=== PATIENT | female | born 1935 | race Caucasian/White ===

== ENCOUNTER 2016-06-08 21:46 | Emergency (ER) | payer MEDICARE, OTHER ==
--- NOTE | ~2016-06-08 | ER ---
PATIENT'S NAME: HARPER AMBROSE [facility] AGE: 80 Y [address] ROOM: [place] [address] LOCATION: [facility] ADMIT DATE: 06/08/2016 ER/Outpatient Report DISCHARGE DATE: 06/09/2016 FAMILY PHYSICIAN: Physician, Unknown ATTENDING PHYSICIAN: Raeann Kunz Time of Arrival: 2146 hours. Time Seen: 2150 hours. IDENTIFICATION: A 80-year-old female. CHIEF COMPLAINT: Difficulty breathing. HISTORY OF PRESENT ILLNESS: The patient is a 80-year-old female who saw Dr. Horne today for fever and cough and was given an inhaler. She tonight came in with shortness of breath, dry cough, fever. She also complains of dyspnea with exertion. She denies chest pain. When I asked about heart disease, she says yes she has had a history of a "they told me I had heart problems." When I asked her specifically, she is not certain as to what and she denies ever having had a heart attack or stents. She did have a stress test that was negative in 2004. She had nonobstructive coronary artery disease and diastolic dysfunction. ALLERGIES: NO KNOWN DRUG ALLERGIES. CURRENT MEDICATIONS: 1. Quinapril 40 mg daily. 2. Metformin 500 mg daily. 3. Simvastatin 20 mg daily. 4. Chlorthalidone 25 mg daily. 5. Carvedilol 25 mg b.i.d. 6. Melatonin. 7. Tylenol as needed. MEDICAL PROBLEMS: Diabetes mellitus type 2, hypertension, diastolic dysfunction. SOCIAL HISTORY: The patient lives in [place]. She is . Tobacco use, denies. Alcohol use, denies. Drug use, denies. FAMILY HISTORY: PATIENT'S NAME: HARPER AMBROSE [facility] AGE: 80 Y [address] ROOM: [place], [place] [address] LOCATION: [facility] ADMIT DATE: 06/08/2016 ER/Outpatient Report DISCHARGE DATE: 06/09/2016 FAMILY PHYSICIAN: Physician, Unknown ATTENDING PHYSICIAN: Raeann Kunz No family history of premature coronary artery disease. REVIEW OF SYSTEMS: All systems reviewed are negative other than what is noted in the HPI. PHYSICAL EXAMINATION: VITAL SIGNS: Weight 91.3 kilograms, blood pressure 113/90, pulse 78, respirations 18, temp 100, sats 97% on 4 L per nasal cannula. The patient came in on O2 from the ambulance, I am not certain what her room air sats were, but her first sat recorded on the ambulance records were 95%, I do not know if that was before or after being placed on oxygen. HEENT: Head; normocephalic, atraumatic. Ears; TMs translucent, both ears. Eyes; pupils equal and reactive to light and accommodation. Extraocular movements intact. Nose, mucosa pink. No lesions. Mouth, no lesions. Pharynx, benign. NECK: Supple. No lymphadenopathy. No nuchal rigidity. LUNGS: Coarse breath sounds with some scattered coarse wheezes. HEART: Regular rate and rhythm. No murmur, rub, or gallop. ABDOMEN: Soft, nondistended, nontender. SKIN: [place], warm, and dry. No lesions or rashes noted. NEURO: No focal deficit. Lower extremity edema trace, right greater than left. No calf tenderness. EMERGENCY DEPARTMENT COURSE: A DuoNeb was given with improvement of her symptoms. Lungs were clear after that. UA negative. Lactate 1.7. D-dimer elevated at 1.24. White count 16.2 with 86% neutrophils. INR 1.07. Chemistry panel is unremarkable other than a blood sugar of 206. Magnesium 1.5. Cardiac enzymes negative. ProBNP elevated at 783, no proBNP available for comparison. Procalcitonin less than 0.05. CT scan, PE protocol, no pulmonary embolus. Venous Doppler of the right lower extremity negative for acute DVT. EKG; normal sinus rhythm at 74 beats per minute, no acute ST elevation or depression, right bundle-branch block which was noted on previous EKG on 04/19/2004. The patient did get up to urinate and got acutely short of breath. Chest x-ray, no acute process. Pending Radiology overread. The patient was given 40 mg of IV Lasix, DuoNeb treatment here, 1 g of IV Rocephin. IMPRESSION AND PLAN: 1. Bronchitis with reactive airway disease. Plan; Rocephin given here. She will be treated with Z-Ramez as directed. Continue albuterol as inhaler 2 puffs every 2 hours p.r.n. Follow up immediately if any respiratory distress; otherwise, follow up with Dr. Munoz later today. 2. Congestive heart failure. Lasix 40 mg IV given here in the emergency room. We will place her on 20 mg daily for 7 days. 3. Dyspnea on exertion. I discussed with Dr. Horne. The patient would PATIENT'S NAME: HARPER AMBROSE [facility] AGE: 80 Y [address] ROOM: [place] [address] LOCATION: [facility] ADMIT DATE: 06/08/2016 ER/Outpatient Report DISCHARGE DATE: 06/09/2016 FAMILY PHYSICIAN: Physician, Unknown ATTENDING PHYSICIAN: Raeann Kunz like to go home. She will be discharged home with followup later today with Dr. Munoz. 4. Diabetes mellitus type 2, mild hyperglycemia. She is advised to hold her metformin for 48 hours after the contrast from her CT PE protocol. The patient understands and agrees, and all questions have been answered. RAEANN KUNZ MD CAR/modl /[id number] d: 06/09/16712 t: 06/19/16619, OUTPATIENT REPORT
--- NOTE | ~2016-06-08 | ENPV ---
Vascular Lower Extremities DVT Study Procedure Demographics Patient Name HARPER AMBROSE Date of Study 06/09/2016 Patient Number [id number] Gender Female Date of 1935 Age 80 Visit Number [id number] Height Accession Number [id number] Weight Room Number BSA BMI Referring Ginger Ponce Interpreting Trevor Metcalf MD Physician Physician Physician Ordering Physician Ginger Cary MD Director Software Development Lead Customer Service Representative Anabella Dawson [facility] Conclusions Summary No evidence of deep vein thrombosis or superficial thrombophlebitis in the right lower extremity . Procedure Type of Study: Veins:Lower Extremities DVT Study, Lower Extremity Right. Indications for Study:Swelling of Limb. Appropriate Use Criteria:9 Patient Status:STAT. Study Location:ER. Technical Quality:Adequate visualization. Velocities are measured in cm/s ; Diameters are measured in cm Right Lower Extremities DVT Study Measurements Right 2D and Doppler Measurements + + + + +------+------+ + !Location !Visualized!Compressibility!Thrombosis!Signal!Reflux!Reflux ! ! ! ! ! ! ! !(sec) ! + + + + +------+------+ + !GSV Thigh !Yes !Yes !None !Phasic! ! ! + + + + +------+------+ + !Common !Yes !Yes !None !Phasic! ! ! !Femoral ! ! ! ! ! ! ! + + + + +------+------+ + !Prox !Yes !Yes !None !Phasic! ! ! !Femoral ! ! ! ! ! ! ! + + + + +------+------+ + !Mid Femoral!Yes !Yes !None !Phasic! ! ! + + + + +------+------+ + !Dist !Yes !Yes !None !Phasic! ! ! !Femoral ! ! ! ! ! ! ! + + + + +------+------+ + !Popliteal !Yes !Yes !None !Phasic! ! ! + + + + +------+------+ + !Gastroc !Yes !Yes !None ! ! ! ! + + + + +------+------+ + !PTV !Yes !Yes !None ! ! ! ! + + + + +------+------+ + !Peroneal !Yes !Yes !None ! ! ! ! + + + + +------+------+ + Signature dtt: TONNY NICKERSON dtd: 06/09/16 0049 Physician Self Edit
[2016-06-08 22:08] LABS: BASOPHIL % 0.2 %; EOSINOPHIL # 0.5 K/uL (0.0-0.5); EOSINOPHIL % 3.3 %; HEMATOCRIT 40.5 % (33.0-46.0); HEMOGLOBIN 13.2 g/dL (10.0-15.0); IMMATURE GRANULOCYTE # 0.1 K/uL (0.0-0.3); IMMATURE GRANULOCYTE % 0.6 %; MCH 29.9 pg (27.0-34.0); MCHC 32.6 gm/dL (32.0-36.5); MCV 91.6 fl (83.0-98.0); MONOCYTE # 0.6 K/uL (0.0-1.0); MONOCYTE % 3.4 %; MPV 11.4 fl (9.4-12.4); NEUTROPHIL % 86.5 %; NRBC % 0 /100WBC (0-0.00); PLATELET COUNT 177 K/uL (150-450); RBC 4.42 M/uL (3.50-5.50); RDW-CV 13.8 % (11.9-14.6)
[2016-06-08 22:10] LABS: WBC 16.2 K/uL (4.0-11.0)
[2016-06-08 22:22] LABS: INR - (THERAPEUTIC) 1.07 (0.92-1.07); PROTIME 11.2 SECONDS (9.8-11.4); PTT 29 SECONDS (25-32)
[2016-06-08 22:34] LABS: ALBUMIN 3.5 gm/dL (3.5-5.0); ALK PHOS 70 IU/L (33-138); ALT 16 IU/L (12-78); ANION GAP 10.8 (10.0-19.0); AST 11 IU/L (10-40); BLOOD UREA NITROGEN 23 mg/dL (6-24); CHLORIDE 102 mMol/L (96-110); CO2 26 mMol/L (22-32); CPK 82 IU/L (21-215); CREATININE 0.9 mg/dL (0.5-1.1); ESTIMATED GFR (MDRD EQUATION) > 60; MAGNESIUM 1.5 mg/dL (1.8-2.6); POTASSIUM 3.8 mMol/L (3.7-5.1); SODIUM 135 mMol/L (135-145); TOTAL BILIRUBIN 0.5 mg/dL (0.0-1.5); TOTAL PROTEIN 7.3 g/dL (6.0-8.4)
[2016-06-09 01:32] LABS: BILIRUBIN URINE NEGATIVE (NEGATIVE); BLOOD URINE NEGATIVE /UL (NEGATIVE); COLOR URINE COLORLESS (YELLOW); GLUCOSE URINE NEGATIVE (NEGATIVE); KETONE URINE NEGATIVE (NEGATIVE); LEUKOCYTES URINE NEGATIVE /UL (NEGATIVE); NITRITE URINE NEGATIVE (NEGATIVE); PROTEIN URINE NEGATIVE (NEGATIVE); SPEC GRAVITY URINE 1.005 (1.003-1.035); TURBIDITY URINE CLEAR (CLEAR); UROBILINOGEN URINE NORMAL (NORMAL)
== END 2016-06-09 01:56 | disposition disaster alternative care site (69) ==
LOC: GMED 21:46
PROVIDERS: Family Medicine
DX: I50.9 Heart failure, unspecified (principal); E11.9 Type 2 diabetes mellitus without complications; I10 Essential (primary) hypertension; J45.909 Unspecified asthma, uncomplicated; Z79.2 Long term (current) use of antibiotics; Z99.81 Dependence on supplemental oxygen; Z79.84 Long term (current) use of oral hypoglycemic drugs; Z79.899 Other long term (current) drug therapy
CPT/HCPCS: J0696; J1940; J7050; Q9967

== ENCOUNTER 2016-06-11 21:19 | Observation (INO) | payer MEDICARE, OTHER ==
[~2016-06-11] VITALS: Ht 149.9 cm; Wt 91.8 kg
--- NOTE | ~2016-06-11 | CON ---
PATIENT'S NAME: HARPER AMBROSE [facility] AGE: 80 Y [address] ROOM: [place] [address] LOCATION: [facility] ADMIT DATE: 06/12/2016 Consultation DISCHARGE DATE: FAMILY PHYSICIAN: Jhonatan Munoz MD ATTENDING PHYSICIAN: Jhonatan Munoz DATE OF CONSULTATION: 06/13/2016 REFERRING PHYSICIAN: BROOKE PRINCE MD REASON FOR REFERRAL: Shortness of breath. HISTORY OF PRESENT ILLNESS: The patient is a 80-year-old woman with a 1 month history of intermittent wheezing, shortness of breath, and cough. She has had similar episodes in the past about every 6 to 12 months. In the past, she has been given an inhaler for the symptoms and had improvement. When she would get better, she would then discontinue the use of the inhaler. Nonsmoker with no prior history of lung disease. PAST MEDICAL HISTORY: Please refer to the admission history and physical exam. FAMILY HISTORY: Positive for asthma and COPD. SOCIAL HISTORY: , lives in [place]. SYSTEM REVIEW: As per HPI. PHYSICAL EXAMINATION: GENERAL: Overweight elderly woman in no distress. She is not wearing supplemental oxygen. ENT: Unremarkable. NECK: Normal. CHEST: Obese. LUNGS: Diminished, but there are end-expiratory wheezes. HEART: Regular. ABDOMEN: Obese, nontender. EXTREMITIES: Trace of edema. ASSESSMENT: Probable underlying asthma with primary exacerbating factor being viral upper PATIENT'S NAME: HARPER AMBROSE [facility] AGE: 80 Y [address] ROOM: [place] [address] LOCATION: [facility] ADMIT DATE: 06/12/2016 Consultation DISCHARGE DATE: FAMILY PHYSICIAN: Jhonatan Munoz MD ATTENDING PHYSICIAN: Jhonatan Munoz respiratory infections. PLAN: Agree with current regimen of bronchodilators and corticosteroids. We will check bedside pulmonary function testing to get a rough idea of the degree of airflow limitation. We will follow with you. MD NURIA CUEVAS/modl /[id number] d: 06/14/16 0031 t: 06/20/16 0742, CONSULTATION REPORT
--- NOTE | ~2016-06-11 | ER ---
PATIENT'S NAME: HARPER AMBROSE [facility] AGE: 80 Y [address] ROOM: [address] [place], [place] [address] LOCATION: [facility] ADMIT DATE: 06/12/2016 ER/Outpatient Report DISCHARGE DATE: FAMILY PHYSICIAN: Jhonatan Munoz MD ATTENDING PHYSICIAN: Jhonatan Munoz HISTORY OF PRESENT ILLNESS: This is a 80-year-old female who presents today with shortness of breath. She presented here on June 08 as well for the same complaint and had a pretty thorough workup done. The patient reports that she is having the same shortness of breath since she had then, has not really improved. It is mostly exertional. It is only when she even walks on a flat surface, she can walk like 10 or 20 paces and then she gets very very short of breath. Also, has increased fatigue. She says she had a dry cough back then as well, but it was nonproductive. She did not have any other like runny nose, fever, chills or anything like that. She also reports whenever she does walk to the bathroom or has any sort of exertion whatsoever, she also gets this dull ache in her left scapula area. She denies any chest pain though. I reviewed what they did on June 08 for her. She had blood work done, which showed an elevated white count and elevated D-dimer as well. So, CT PE protocol was done, which was negative. She also had cardiac enzymes sent, which were also negative. So, she was given a shot of Rocephin here and discharged with Lasix before for some mildly elevated proBNP and also a Z-Ramez, and she also had albuterol inhalers that were given to her by Dr. Horne. The patient says she has been taking all of these and she does not feel any better. She actually had an appointment with Dr. Cole who is the line haul driver on June 22, but is not sure that she could wait till then basically because she is very very short of breath with any sort of exertion. She says she feels a lot better at rest though. No other complaints at this time. PAST MEDICAL HISTORY: Includes rwo-ppdsiqi-jlvxcmdap diabetes, hypertension, and diastolic dysfunction. PAST SURGICAL HISTORY: Includes bilateral total knee arthroplasty. SOCIAL HISTORY: She does not smoke, drink, or use any drugs. FAMILY HISTORY: No history of sudden cardiac or premature cardiac disease. ALLERGIES: NONE. PATIENT'S NAME: HARPER AMBROSE [facility] AGE: 80 Y [address] ROOM: [address] [place], [place] [address] LOCATION: [facility] ADMIT DATE: 06/12/2016 ER/Outpatient Report DISCHARGE DATE: FAMILY PHYSICIAN: Jhonatan Munoz MD ATTENDING PHYSICIAN: Jhonatan Munoz MEDICATIONS: Include, 1. Quinapril 40 mg daily. 2. Metformin 500 mg daily. 3. Simvastatin 20 mg daily. 4. Chlorthalidone 25 mg daily. 5. Carvedilol 25 mg b.i.d. 6. Melatonin. 7. Tylenol as needed. 8. Recently prescribed Lasix 20 mg daily for 7 days. 9. Also recently placed on Z-Ramez. REVIEW OF SYSTEMS: Negative except for those discussed in the HPI. PHYSICAL EXAMINATION: VITAL SIGNS: The patient is 4 feet 11 inches. She weighs 91.5 kilos. Blood pressure 102/52, heart rate 64, respiratory rate 24, temperature is 98.8, and saturations are 95% on room air. GENERAL: The patient is mildly tachypneic at this time, breathing about 22 breaths per minute when I am talking to her. When she did walk in from the waiting room into the room, she was breathing around 45 to 50 breaths per minute. She is able to speak to me in full sentences. She is not actively vomiting or retching. She is not pale or diaphoretic. She is A and O x4. Her GCS is 15. THROAT: Clear. HEART: She has regular rate and rhythm. Heart rate is 64. There are no murmurs. No ectopy on the monitor. CHEST: She has no chest wall tenderness. She has decreased lung sounds at the bases and sort of diffuse wheezing in the upper anterior lungs. No rales or rhonchi though. ABDOMEN: She is obese, soft, nontender, nondistended. EXTREMITIES: She has no pedal edema. Moves all extremities. SKIN: Warm and dry and intact. EMERGENCY ROOM COURSE: We did an EKG today, which shows sinus bradycardia, heart rate of 56 at this time, right bundle-branch block, poor R-wave progression. She also has T-wave inversions in lead III. There are no ST elevations that I can see. The T- wave inversions in III are new, but otherwise it looks pretty unchanged from the EKG done on 06/08/2016. We checked a CBC, CMP, and cardiac enzymes again. The CBC shows a white count of 10.6, H and H are 11.9/36.5, platelets are 178. No bandemia. Her CMP shows a sodium of 140, potassium 3.4, chloride 102, CO2 of 27, anion gap 14.4, glucose 122, BUN 81, creatinine is 2.0, bilirubin is PATIENT'S NAME: HARPER AMBROSE [facility] AGE: 80 Y [address] ROOM: [address] [address] LOCATION: [facility] ADMIT DATE: 06/12/2016 ER/Outpatient Report DISCHARGE DATE: FAMILY PHYSICIAN: Jhonatan Munoz MD ATTENDING PHYSICIAN: Jhonatan Munoz 0.3, alkaline phosphatase 71, AST 17, ALT 18, GFR is only 24, CPK is 79, CK-MB is 1.5, troponin is less than 0.04, and her proBNP today is 338, it was 783 on 06/08/2016, so it is now normal. The patient was given breathing treatments here and also prednisone as I initially thought this was sort of like a reactive airway disease because the wheezing would clear with the breathing treatment, but every time she got up to use the bathroom or would walk back, she became very short of breath. We put her back on the monitor, was that she was breathing around 50 breaths per minute just walking maybe 10 feet to the bathroom from her bed. Now with this sort of left scapular pain, I would be concerned for this being like an anginal equivalent. Even though she does not have any chest pain at this time, she was given aspirin. We will hold her Lasix at this time too. I did call Dr. Mcclellan who is covering for Dr. Munoz, and the patient will be admitted for cardiac obs to the floor, admitted in stable condition. IMPRESSION: Exertional dyspnea. MD VIRIDIANA FELDER/modl /[id number] d: 06/12/16 0429 t: 06/12/16 1820, OUTPATIENT REPORT
--- NOTE | ~2016-06-11 | PUL ---
PATIENT'S NAME: HARPER AMBROSE [facility] AGE: 80 Y [address] ROOM: [place] [address] LOCATION: [facility] ADMIT DATE: 06/12/2016 Pulmonary DISCHARGE DATE: FAMILY PHYSICIAN: Jhonatan Munoz MD ATTENDING PHYSICIAN: Jhonatan Munoz NAME OF PROCEDURE: Bedside Spirometry DATE OF PROCEDURE: June 13, 2016 TECH: RArapril, MOTORMAN/WOMAN REASON FOR EXAM: Dyspnea on exertion RESULTS: Spirometry does not demonstrate significant airflow obstruction, and there is no change post bronchodilator. There is a suggestion of at least moderate chest restriction. MD NURIA CUEVAS/ /[id number] dtt: 06/20/16 0745 Aleksandar David E. dtd: 06/14/16 1129
--- NOTE | ~2016-06-11 | ECHO ---
Transthoracic Echocardiography Report (TTE) Demographics Patient Name HARPER AMBROSE Date of Study 06/12/2016 Patient Number [id number] Visit Number [id number] Date of 1935 Room Number [address] Gender Female Number Age 80 year(s) Referring Tammy Ponce Winterizer Ajay Hull RVT, Physician RDCS Physician Interpreting Sakshi Temple Machine Veneer Repairer Physician Supervising Ordering Sakshi Temple MD/MLP Physician Nurse Stress Art Psychotherapist Conclusions Contractility Score Summary Normal Left Ventricular contractility was noted. Summary Normal LV/RV size and systolic function. The estimated left ventricular ejection fraction is 60-65%. Mild concentric left ventricular hypertrophy. Diastolic flow assessment reveals impaired relaxation consistent with Grade I diastolic dysfunction . Diastolic assessment reveals Grade I diastolic dysfunction. NO e/o pulmonary HTN on echo. Procedure Type of Study TTE procedure:2D Echocardiogram. Procedure Date Date: 06/12/2016 Start: 08:29 AM Study Location: Inpatient Portable Technical Quality: Good visualization Indications:Shortness of breath and Dyspnea with exertion. Appropriate Use Criteria: 8 Patient Status: Routine Rhythm: NSR HR: 67 bpm BP: 118/69 mmHg M-Mode/2D Measurements LV Diastolic Dimension: 3.48 cm LV Systolic Dimension: 2.27 cm LV Septum Diastolic: 1.39 cm LV PW Diastolic: 1.33 cm AO Root Dimension: 2.2 cm Cardiac Output: 4.55 l/min AV Cusp Separation: 1.2 cm RV Diastolic Dimension: 3.74 cm LA volume: 46 ml LVOT: 1.6 cm RV Base: 3.15 cm LVOT VTI: 33.8 cm RV Mid: 3.1 cm LV Stroke volume: 67.92 ml TAPSE: 1.9 cm TDI-S': 10.3 cm/s Doppler Measurements AV Peak Velocity: 1.83 m/s MV Peak E-Wave: 0.72 m/s AV Peak Gradient: 13.4 mmHg MV Peak A-Wave: 0.97 m/s AV Mean Gradient: 9 mmHg MV E/A Ratio: 0.74 LVOT Peak Velocity: 1.51 m/s MV P1/2t: 109 msec TR Gradient:22.28 mmHg PV Peak Velocity: 1.09 m/s Estimated RAP:5 mmHg PV Peak Gradient: 4.75 mmHg Estimated RVSP: 27 mmHg Estimated PASP: 27.28 mmHg E' Septal Velocity: 0.05 m/s A' Septal Velocity: 0.1 m/s E' Lateral Velocity: 0.06 m/s A' Lateral Velocity: 0.11 m/s Findings Left Ventricle Mild concentric left ventricular hypertrophy. Diastolic assessment reveals Grade I diastolic dysfunction. Right Ventricle Normal right ventricle structure and function. Left Atrium Normal left atrial size. There is no evidence of patent foramen ovale or atrial septal defect by color Doppler. Right Atrium Normal right atrial size. IVC measures 1.46 cm with inspiratory collapse. Mitral Valve Normal mitral valve structure and function. Aortic Valve The aortic valve is mildly sclerotic. Tricuspid Valve Normal appearing tricuspid valve. Trivial tricuspid regurgitation by color Doppler. Pulmonic Valve Normal pulmonic valve structure and function. Pericardial Effusion No evidence of pericardial effusion. Miscellaneous Visualized portions of the aortic root and ascending aorta appear normal in size. Pleural Effusion No evidence of pleural effusion. Contractility Score LV regional wall motion:(0-Non visualized 1-Normal 2-Hypokinesis 3-Akinesis 4-Dyskinesis 5-Aneurysm) Signature dtt: BROOKE PRINCE dtd: 06/12/16 0829 Physician Self Edit
--- NOTE | ~2016-06-11 | DS ---
PATIENT'S NAME: HARPER AMBROSE [facility] AGE: 80 Y [address] ROOM: [address] [place] [address] LOCATION: GPCU ADMIT DATE: 06/12/2016 Discharge Summary DISCHARGE DATE: 06/14/2016 FAMILY PHYSICIAN: Jhonatan Coto MD ATTENDING PHYSICIAN: Jhonatan Coto DISCHARGE DIAGNOSES: 1. Asthma exacerbation. 2. Acute renal failure, resolved. SECONDARY DIAGNOSES: 1. Acute hypoxic respiratory failure, improved. 2. Restrictive lung disease secondary to obesity. 3. Adult-onset diabetes mellitus, controlled. 4. Left ventricular hypertrophy. 5. Grade 1 diastolic dysfunction. 6. Hypertension. 7. Hyperlipidemia. 8. Morbid obesity. PRINCIPAL PROCEDURE: Echocardiogram. FOLLOWUP: Follow up is with Dr. Coto in 10 to 14 days, Dr. Huertas in 1 week, and [facility] Cardiology in 1 month. DISCHARGE MEDICATIONS: Include: 1. Accupril 40 mg daily. 2. Aspirin 81 mg daily. 3. Cefuroxime axetil 500 mg twice daily, finishing out her course that she already has at home. 4. Imdur 30 mg p.o. q.a.m. 5. Potassium 10 mEq 2 tablets twice daily. 6. Simvastatin 20 mg daily. 7. Proventil HFA 1 to 2 puffs every 4 hours p.r.n. 8. Metformin 500 mg p.o. twice daily of the XR. 9. Chlorthalidone 25 mg q.a.m. 10. Carvedilol 25 mg twice daily. 11. Tylenol 500 mg 2 every 4 hours p.r.n. pain. 12. Symbicort 160-4.5, 2 puffs twice daily. Rinse mouth after use. 13. Furosemide 40 mg daily. 14. Prednisone. Please see her tapering schedule. Her prednisone schedule is 10 mg 2 p.o. b.i.d. for 3 days, then 2 p.o. in the a.m. and 1 p.o. in the p.m. for 3 days and 1 p.o. b.i.d. for 3 days, then 1 p.o. q.a.m. for 3 days, then 1/2 p.o. q.a.m. for 3 doses and then stop. 15. Myrbetriq 50 mg daily. PATIENT'S NAME: HARPER AMBROSE [facility] AGE: 80 Y [address] ROOM: [address] [place], [place] [address] LOCATION: GPCU ADMIT DATE: 06/12/2016 Discharge Summary DISCHARGE DATE: 06/14/2016 FAMILY PHYSICIAN: Jhonatan Coto MD ATTENDING PHYSICIAN: Jhonatan Coto 16. Triamcinolone cream p.r.n. to topical areas. 17. We also, with her A1c being elevated, started her on Jardiance 25 mg 1 p.o. daily. LABORATORY SYNOPSIS: On admission, white count was 10.6, hemoglobin 11.9, hematocrit 36.5, and platelet count 178. This was stable throughout her stay. On the 9th, her white count was 12, hemoglobin 11.4, hematocrit 34.7, platelet count 187. Her differential was pretty much normal throughout. Her sodium on admission was 140, potassium slightly low at 3.4 and it was up to 3.7 on dismissal. The rest of her electrolytes were normal. Her blood sugars did increase into the 190 to 200 range with the steroid she was given during her hospital stay. She also had acute renal insufficiency improved. Her admitting creatinine was 2 and it got back down to 1.0. Her liver tests remained normal throughout. Her A1c was at 7.7, which was up significantly since her last clinic visit when it was in the 6s. Her cholesterol is 129, triglyceride 79, HDL 51, and LDL 63, so those overall looked good. HOSPITAL COURSE: The patient was admitted to observation by Dr. Mcclellan through the emergency room. She had cardiac enzymes, Accu-Chek's a.c. and at bedtime, sliding scale insulin, [facility], and had her medications renewed. During her workup, it was thought initially she may have COPD, but eventually it was decided that she had an asthma process and some restrictive lung disease due to her morbid obesity. The patient's situation seemed to gradually improve. She was started on Solu-Medrol. Carvedilol was decreased during her hospital stay. The rest of her medicines were overall continued. Cardiology was consulted and they recommended consulting Pulmonary. I was in agreement with this. Her Coreg was initially discontinued and they started her on Imdur and Norvasc. Her potassium was low, so we started her on some potassium. It did help improve her level. Albuterol via nebulization seemed to really help her also. They ordered bedside pulmonary function test. In mainly showed a restrictive process, but he did suspect that she had asthma. There were no signs of COPD. Her echocardiogram showed normal left ventricular contractility with normal LV and RV size and function with an LVEF of 60% to 65%, mild concentric LVH, diastolic flow pattern revealed impaired relaxation with grade 1 diastolic dysfunction. No signs of pulmonary hypertension on echo. Spirometry did not show significant airway obstruction and there was no change post bronchodilator. There was at least moderate chest restriction. The patient's situation overall improved. We discussed the importance of getting good control of her diabetes and also discussed the importance of weight loss that a lot of her breathing issues and that were related to her weight. She is going to work real hard on this. Followup is as mentioned above. CONDITION ON DISCHARGE: Good. PATIENT'S NAME: HARPER AMBROSE [facility] AGE: 80 Y [address] ROOM: [address] [place] [address] LOCATION: GPCU ADMIT DATE: 06/12/2016 Discharge Summary DISCHARGE DATE: 06/14/2016 FAMILY PHYSICIAN: Jhonatan Coto MD ATTENDING PHYSICIAN: Jhonatan Coto JHONATAN COTO MD PANCHAL/modl /[id number] CC: [facility] d: 06/18/16 2147 t: 07/13/16 1111, DISCHARGE SUMMARY
--- NOTE | ~2016-06-11 | CON ---
PATIENT'S NAME: HARPER PRICE [facility] AGE: 80 Y [address] ROOM: [place] [address] LOCATION: GPCU ADMIT DATE: 06/12/2016 Consultation DISCHARGE DATE: FAMILY PHYSICIAN: Jhonatan Munoz MD ATTENDING PHYSICIAN: Jhonatan Munoz DATE OF CONSULTATION: 06/12/2016 REFERRING PHYSICIAN: BROOKE PRINCE MD CARDIOLOGY CONSULTATION REPORT REFERRING PHYSICIAN: 1. Jasper Mcclellan MD. 2. Jhonatan Munoz MD. REASON FOR CONSULTATION: Dyspnea and abnormal EKG. HISTORY OF PRESENT ILLNESS: Ms. Price is a pleasant 80-year-old female, who was seen in the emergency room with complaints of shortness of breath. She has been symptomatic presently for 3 to 4 days with complaints of shortness of breath on minimal exertion and cough. She was apparently seen in the emergency room on June 08 as well, and she had extensive workup at that time including workup for pulmonary embolism which was found negative. She was treated with Lasix and Rocephin, and she also received Z-Ramez. In view of persistent shortness of breath, she came back to the emergency room yesterday and was admitted for further management. She denied any chest pain. The patient is physically not very active and stated that she walks, however, she has leg discomfort which limits her activities. She has had bilateral knee replacement. She denied any palpitations. No history of syncope. No history of previous known cardiac disease. PAST MEDICAL HISTORY: 1. Hypertension. 2. Diabetes mellitus. 3. Hyperlipidemia. PAST SURGICAL HISTORY: The patient is status post bilateral total knee arthroplasty. SOCIAL HISTORY: She is a nonsmoker and nonalcoholic. She is and lives with her . PATIENT'S NAME: HARPER PRICE [facility] AGE: 80 Y [address] ROOM: [place] [address] LOCATION: GPCU ADMIT DATE: 06/12/2016 Consultation DISCHARGE DATE: FAMILY PHYSICIAN: Jhonatan Munoz MD ATTENDING PHYSICIAN: Jhonatan Munoz FAMILY HISTORY: No family history of premature coronary artery disease or sudden cardiac . REVIEW OF SYSTEMS: The patient stated she has chronic mild diminution of vision. Also complained of mild dysphagia and history of heartburn, and she was previously diagnosed to have gastroesophageal reflux disease. She denied any nausea or vomiting. No history of diarrhea or constipation. No history of fever. History of dry cough and sometimes with small amount of expectoration is present. She also complained of chronic mild leg discomfort, especially with walking. Review of other systems was essentially negative. CURRENT MEDICATIONS: As an outpatient included: 1. Quinapril 40 mg daily. 2. Metformin 500 mg daily. 3. Simvastatin 20 mg daily. 4. Chlorthalidone 25 mg daily. 5. Carvedilol 25 mg b.i.d. 6. Melatonin. 7. Tylenol. 8. Lasix 20 mg. 9. Z-Ramez. PHYSICAL EXAMINATION: GENERAL APPEARANCE: On examination, she is awake, alert, and oriented and in no distress. VITAL SIGNS: Her temperature is 98.0, respiratory rate 16, pulse rate 66, blood pressure 118/69, and weight 86 kg. HEENT: Head is atraumatic and normocephalic. Tongue is moist. NECK: No significant jugular venous distention is present. CARDIOVASCULAR: S1 and S2 are audible. They are regular in rate and rhythm with no audible murmur. RESPIRATORY: Bilateral vesicular breath sounds are audible with bilateral expiratory rhonchi, especially heard posteriorly on both sides. ABDOMEN: Mildly distended. Soft, nontender. Bowel sounds are present. EXTREMITIES: Show no significant pedal edema. NEUROLOGIC: The patient is awake, alert, and oriented. There are no focal neurological deficits noted. SKIN: Warm and dry. LABORATORY DATA: Labs: Sodium 140, potassium 3.4, chloride 102, CO2 of 27, glucose 122, BUN 81, and creatinine 2. Her BUN has increased from 23 on June 08 to 81 PATIENT'S NAME: HARPER PRICE [facility] AGE: 80 Y [address] ROOM: [place] [address] LOCATION: GPCU ADMIT DATE: 06/12/2016 Consultation DISCHARGE DATE: FAMILY PHYSICIAN: Jhonatan Munoz MD ATTENDING PHYSICIAN: Jhonatan Munoz yesterday. Magnesium 1.5. White blood cell count 10.6, hemoglobin 11.9, and platelet count 178,000. Cardiac enzymes; CPK 72, CK-MB 1.7, and troponin is less than 0.04. ProBNP 338. EKG done on 06/11/2016 showed sinus bradycardia at 56 beats per minute, right bundle branch block, T-wave inversion in lead 3, and anterior ST-elevation in anterior and lateral leads likely due to early repolarization. ASSESSMENT AND PLAN: 1. Dyspnea appears likely to be due to chronic obstructive pulmonary disease exacerbation. We will start patient on nebulized bronchodilators. Management per primary care provider. Since patient also has coronary artery disease risk factors, we will consider stress test after her bronchospasm improves. The patient unable to exercise much due to her chronic leg discomfort and she is status post bilateral knee replacement. 2. Abnormal EKG. We will consider stress test for evaluation of ischemia after bronchospasm improves. 3. Hypertension, well controlled. 4. Diabetes mellitus. In view of worsening of renal function, we will hold metformin and we will consider alternative medications. 5. Acute renal failure, likely related to diuretics. We will discontinue diuretics and hydrate the patient. 6. Obesity. The patient was counseled on diet and weight loss. We will follow up on echocardiogram. Thank you for allowing us in taking part in the care of this pleasant patient. The plan of care was discussed with the patient and her . MD BRIDGET CAMPOS/modl /[id number] d: 06/12/161330 t: 06/29/161930, CONSULTATION REPORT
[2016-06-11 23:07] LABS: BASOPHIL % 0.3 %; EOSINOPHIL % 9.5 %; HEMATOCRIT 36.5 % (33.0-46.0); HEMOGLOBIN 11.9 g/dL (10.0-15.0); IMMATURE GRANULOCYTE # 0.1 K/uL (0.0-0.3); IMMATURE GRANULOCYTE % 0.6 %; LYMPHOCYTE # 2.2 K/uL (0.8-4.0); LYMPHOCYTE % 21.2 %; MCHC 32.6 gm/dL (32.0-36.5); MCV 91.9 fl (83.0-98.0); MONOCYTE # 0.7 K/uL (0.0-1.0); MONOCYTE % 6.6 %; MPV 11.5 fl (9.4-12.4); NEUTROPHIL # (ANC) 6.5 K/uL (1.8-7.8); NEUTROPHIL % 61.8 %; NRBC % 0 /100WBC (0-0.00); PLATELET COUNT 178 K/uL (150-450); RBC 3.97 M/uL (3.50-5.50); WBC 10.6 K/uL (4.0-11.0)
[2016-06-11 23:25] LABS: ALBUMIN 3.2 gm/dL (3.5-5.0); ALK PHOS 71 IU/L (33-138); ALT 18 IU/L (12-78); ANION GAP 14.4 (10.0-19.0); AST 17 IU/L (10-40); BLOOD UREA NITROGEN 81 mg/dL (6-24); CALCIUM 8.4 mg/dL (8.5-10.5); CHLORIDE 102 mMol/L (96-110); CO2 27 mMol/L (22-32); CPK 79 IU/L (21-215); ESTIMATED GFR (MDRD EQUATION) 24; POTASSIUM 3.4 mMol/L (3.7-5.1); SODIUM 140 mMol/L (135-145); TOTAL BILIRUBIN 0.3 mg/dL (0.0-1.5); TOTAL PROTEIN 6.9 g/dL (6.0-8.4)
[2016-06-12] MEDS ORDERED: ACCUPRIL40 MG PO (01:41)
[2016-06-12] MEDS ORDERED: ZOCOR20 MG PO (01:42)
[2016-06-12] MEDS ORDERED: GLUCOPHAGE XR500 M1 PO (01:42)
[2016-06-12] MEDS ORDERED: COREG25 MG PO (01:43)
[2016-06-12] MEDS ORDERED: HYGROTON25 MG PO (01:43)
[2016-06-12] MEDS ORDERED: TYLENOL EXTRA500 MG PO (01:44)
[2016-06-12] MEDS ORDERED: SYMBICORT 16010.2 GM INH (01:46)
--- NOTE | 2016-06-12 02:02 | NUR ---
PATIENT SEEN IN ER ON 06/08 DIAGNOSED WITH BRONCHITIS. HAS NOT SEEN ANY IMPROVEMENT AND HAS DEVELOVED SOB AND L) SHOULDER PAIN ON EXCERSION. ALSO EKG CHANGES. PATIENT IS CURRENTLY ON ROOM AIR. TRENDING CARDIAC ENZYMES. EDUCATED PATIENT ON USE OF CALL LIGHT.
[2016-06-12 06:45] LABS: CPK 72 IU/L (21-215)
[2016-06-12] MEDS ORDERED: CEFTIN500 MG PO (09:24)
[2016-06-12] MEDS ORDERED: LASIX40 MG PO (09:24)
[2016-06-12] MEDS ORDERED: DELTASONE10 MG PO (09:25)
[2016-06-12] MEDS ORDERED: PROVENTIL OR V6.7 GM INH (09:25)
[2016-06-12] MEDS ORDERED: MYRBETRIQ50 MG PO (09:26)
[2016-06-12] MEDS ORDERED: TRIACET 0.1% 8080 GM TOP (09:27)
--- NOTE | 2016-06-12 15:19 | NUR ---
Significant Event: VSS. UP WITH SBA. WHEEZING AND SHORTNESS OF BREATH WORSENS WITH ACTIVITY. ORTHOSTATIC BP NEGATIVE. STARTED IV SOLUMEDROL. CONSULTED PULMONARY, DR. FOSTER TO SEE. CARDIAC ENZYMES HAVE REMAINED NEGATIVE. NS @ 100 ML/HR FOR 1 LITER. IV TO RIGHT FA. FAMILY AT BEDSIDE. Follow up:
[2016-06-12 15:41] LABS: CALCIUM 8.7 mg/dL (8.5-10.5); CREATININE 1.5 mg/dL (0.5-1.1)
[2016-06-12 15:42] LABS: ANION GAP 15.6 (10.0-19.0); POTASSIUM 3.6 mMol/L (3.7-5.1)
[2016-06-12 15:43] LABS: CPK 93 IU/L (21-215)
[2016-06-12 18:25] LABS: CPK 111 IU/L (21-215)
[2016-06-13 03:38] LABS: BASOPHIL % 0.1 %; HEMOGLOBIN 11.2 g/dL (10.0-15.0); IMMATURE GRANULOCYTE % 0.4 %; LYMPHOCYTE # 0.9 K/uL (0.8-4.0); MCH 29.6 pg (27.0-34.0); MCHC 32.9 gm/dL (32.0-36.5); MCV 89.7 fl (83.0-98.0); MONOCYTE # 0.1 K/uL (0.0-1.0); MONOCYTE % 0.9 %; MPV 11.6 fl (9.4-12.4); NEUTROPHIL % 85.6 %; NRBC % 0 /100WBC (0-0.00); PLATELET COUNT 183 K/uL (150-450); RBC 3.79 M/uL (3.50-5.50); RDW-CV 13.6 % (11.9-14.6)
[2016-06-13 03:54] LABS: ANION GAP 12.5 (10.0-19.0); CALCIUM 8.1 mg/dL (8.5-10.5); POTASSIUM 3.5 mMol/L (3.7-5.1)
[2016-06-13 04:05] LABS: CPK 73 IU/L (21-215)
--- NOTE | 2016-06-13 04:36 | NUR ---
A/O. HR 60s. SBP 110-160s. AFEBRILE. ROOM AIR. INSPIRATORY AND EXPIRATORY WHEEZE THROUGHOUT. FLUID BOLUS FINISHED. UP TO BATHROOMM SBA. NO BM. DENIES PAIN. PULMONOLOGY TO SEE TODAY. ACHS ACCUCHECKS.
--- NOTE | 2016-06-13 12:02 | NUR ---
Introduced self and role of care management to patient and family. She lives in [place] with her . She states that she is able to do all her own ADL's. Her family is available to assist as needed. She plans on returning home on discharge. She denies any needs at this time. Will continue to follow.
--- NOTE | 2016-06-13 15:04 | NUR ---
Significant Event: Patient A/O x 3. Up with SBA. VSS on RA. Continues to have wheezing present in all lung robertson. Short of breath with activity. Dr. Huertas saw patient and ordered PFT's. To do at approximately 1900 tonight. R)FA PIV saline locked. Gave last dose of IV solumedrol ordered (4/4 doses). Family at beside throughout the day. Blood sugars in 200-300's. ACHS accu checks. Follow up: Continue as per plan of care. PFT's tonight. Monitor repsiratory status.
[2016-06-14 04:43] LABS: BASOPHIL % 0.1 %; HEMATOCRIT 34.7 % (33.0-46.0); HEMOGLOBIN 11.4 g/dL (10.0-15.0); IMMATURE GRANULOCYTE # 0.1 K/uL (0.0-0.3); IMMATURE GRANULOCYTE % 0.6 %; LYMPHOCYTE # 1.1 K/uL (0.8-4.0); LYMPHOCYTE % 9.4 %; MCH 29.6 pg (27.0-34.0); MCHC 32.9 gm/dL (32.0-36.5); MCV 90.1 fl (83.0-98.0); MONOCYTE # 0.7 K/uL (0.0-1.0); MONOCYTE % 5.6 %; MPV 11.1 fl (9.4-12.4); NEUTROPHIL # (ANC) 10.1 K/uL (1.8-7.8); NEUTROPHIL % 84.3 %; NRBC % 0 /100WBC (0-0.00); PLATELET COUNT 187 K/uL (150-450); RBC 3.85 M/uL (3.50-5.50); RDW-CV 13.7 % (11.9-14.6)
--- NOTE | 2016-06-14 04:49 | NUR ---
Significant Event: Patient A/Ox3. VSS on RA. Lungs slightly coarse with expiratory wheezes. Sats >95% on room air. HS blood glucose of 351. Patient has had no complaints of pain, but states she hasn't slept very well this shift. Follow up: Home today?
[2016-06-14 04:58] LABS: ANION GAP 11.7 (10.0-19.0); CALCIUM 8.3 mg/dL (8.5-10.5); POTASSIUM 3.7 mMol/L (3.7-5.1)
[2016-06-14] MEDS ORDERED: ASPIRIN (CHILDR81 MG PO (14:12)
[2016-06-14] MEDS ORDERED: IMDUR30 MG PO (14:13)
[2016-06-14] MEDS ORDERED: K-TAB ER20 MEQ PO (14:14)
[2016-06-14] MEDS ORDERED: JARDIANCE25 MG PO (14:31)
--- NOTE | 2016-06-14 16:59 | NUR ---
Discharge Summary: Patient A/O x 3. Up independently in room. Vital signs stable: HR 57, BP 168/73, O2 saturation 96% RA, temperature 97.7, RR 20, and denies pain. Patient has wheezing in lungs, but MD's aware. Discharge instructions included new medications/medication changes, follow-up appointments with Dr. Frost, Dr. Munoz, and Dr. Huertas, signs/symptoms to be alert for, diabetes/diet education, and info about asthma. Patient and verbalize understanding of all teaching. Patient left PCU at 1625 to [facility] and then home to self care with . IV and monitor discontinued. No needs at time of discharge. Julio César RN 06/14/16
== END 2016-06-14 16:25 | disposition disaster alternative care site (69) ==
LOC: GMED 21:19 → GPCU 06-12 01:08
PROVIDERS: Emergency Medicine; Family Medicine; Internal Medicine Interventional Cardiology; ADMIT Obstetrics & Gynecology Obstetrics
DX: J45.901 Unspecified asthma with (acute) exacerbation (principal); J96.01 Acute respiratory failure with hypoxia; I11.0 Hypertensive heart disease with heart failure; I50.32 Chronic diastolic (congestive) heart failure; G51.0 Bell's palsy; E11.9 Type 2 diabetes mellitus without complications; E78.2 Mixed hyperlipidemia; M19.90 Unspecified osteoarthritis, unspecified site; Z68.38 Body mass index [BMI] 38.0-38.9, adult; E66.01 Morbid (severe) obesity due to excess calories; Z98.41 Cataract extraction status, right eye; Z98.890 Other specified postprocedural states; Z96.653 Presence of artificial knee joint, bilateral; Z79.84 Long term (current) use of oral hypoglycemic drugs; Z79.899 Other long term (current) drug therapy
CPT/HCPCS: G0237; G0378; J2920; J7030; J7512

== ENCOUNTER 2016-06-26 16:55 | Observation (INO) | payer MEDICARE, OTHER ==
[~2016-06-26] VITALS: Ht 149.9 cm; Wt 87.5 kg
[~2016-06-26 16:55] MED LIST: ACCUPRIL40 MG PO; ASPIRIN (CHILDR81 MG PO; CEFTIN500 MG PO; COREG25 MG PO; DELTASONE10 MG PO; GLUCOPHAGE XR500 M1 PO; HYGROTON25 MG PO; IMDUR30 MG PO; JARDIANCE25 MG PO; K-TAB ER20 MEQ PO; LASIX40 MG PO; MYRBETRIQ50 MG PO; PROVENTIL OR V6.7 GM INH; SYMBICORT 16010.2 GM INH; TRIACET 0.1% 8080 GM TOP; TYLENOL EXTRA500 MG PO; ZOCOR20 MG PO
--- NOTE | 2016-06-26 17:41 | NUR ---
Pt admitted from clinic. has been lightheaded last 2 days and was seeing black spots today so she went to the clinic. admitted at 1715. Up with standby assist. VS stable. Hx of htn, high cholesterol, bels palsy, heart cath, bilaterial knee replacements, asthma, inc of urine at times, diabetes. c/o intermittent left sharp pain under breasts, MD aware. Also has hx of difficulty swallowing. Has some bruises on bilaterial arms from IV sticks as she was in the hospital a few weeks ago for asthma. Awaiting orders.
[2016-06-26 19:44] LABS: CPK 33 IU/L (21-215)
[2016-06-26 21:42] LABS: CPK 33 IU/L (21-215)
[2016-06-26 23:53] LABS: CPK 29 IU/L (21-215)
--- NOTE | 2016-06-27 04:46 | NUR ---
Significant Event: Patient has not reported any dizziness and vitals have been stable with no hypotensive episodes. Up to bathroom with stand-by assist. Alert and oriented pleasant with cares. Accucheck AC/HS. Follow up: Home meds need to be addressed.
[2016-06-27 06:18] LABS: BASOPHIL % 0.2 %; EOSINOPHIL # 0.6 K/uL (0.0-0.5); EOSINOPHIL % 5.6 %; HEMATOCRIT 35.8 % (33.0-46.0); HEMOGLOBIN 11.5 g/dL (10.0-15.0); IMMATURE GRANULOCYTE # 0.1 K/uL (0.0-0.3); IMMATURE GRANULOCYTE % 0.8 %; LYMPHOCYTE % 17.5 %; MCH 29.5 pg (27.0-34.0); MCHC 32.1 gm/dL (32.0-36.5); MCV 91.8 fl (83.0-98.0); MONOCYTE # 0.5 K/uL (0.0-1.0); MONOCYTE % 4.5 %; MPV 11.1 fl (9.4-12.4); NEUTROPHIL % 71.4 %; NRBC % 0 /100WBC (0-0.00); PLATELET COUNT 150 K/uL (150-450); RDW-CV 14.2 % (11.9-14.6); WBC 11.1 K/uL (4.0-11.0)
[2016-06-27 06:38] LABS: ALBUMIN 2.6 gm/dL (3.5-5.0); ANION GAP 11.4 (10.0-19.0); CALCIUM 7.7 mg/dL (8.5-10.5); POTASSIUM 3.4 mMol/L (3.7-5.1); TOTAL PROTEIN 5.2 g/dL (6.0-8.4)
[2016-06-27 06:41] LABS: TOTAL BILIRUBIN 0.5 mg/dL (0.0-1.5)
--- NOTE | 2016-06-27 10:45 | NUR ---
Introduced self/role to patient. She lives in [place] with her . She states she gets around independently and denied any need for DME. She could not think of any barriers at home or barriers to discharging today. Added my name to her marker board.
--- NOTE | 2016-06-27 14:23 | NUR ---
D:Orders received for patient to be dismissed. I:Dismissal instructions were prepared and reviewed with the patient. The following information was reviewed with the patient:diet and activity recommendations for home, s/s to monitor for and to report to MD if they occur, home medications and changes to home medications, (highlighted all med changes on pt's copy of dismissal instructions), and plans for pt to follow up with Dr. Conklin tomorrow at 2:00 PM. Leighton information given to patient on the following topic: Preventing DVT. R:The patient verbalized understanding of above teaching and denied further questions at this point in time. P:The patient was given her dismissal paperwork. The primary nurse, Galilea SON, was informed that the teaching had been completed. The patient will be dismissed when her arrives to get her. Yue SON
== END 2016-06-27 14:50 | disposition disaster alternative care site (69) ==
LOC: GMSU 16:55
PROVIDERS: ADMIT Family Medicine
DX: N17.9 Acute kidney failure, unspecified (principal); I95.1 Orthostatic hypotension; E86.0 Dehydration; I10 Essential (primary) hypertension; E78.5 Hyperlipidemia, unspecified; J45.909 Unspecified asthma, uncomplicated; E11.9 Type 2 diabetes mellitus without complications; Z79.82 Long term (current) use of aspirin; Z79.899 Other long term (current) drug therapy
CPT/HCPCS: G0378; G0379; J7030; J7040

== ENCOUNTER → 2016-07-08 | Outpatient (CLI) | payer MEDICARE, OTHER ==
--- NOTE | ~2016-07-08 | ESTC ---
Cardiac Perfusion Imaging Demographics Patient Name ARNOL Lagos Gender Female Patient Number [id number] Race Visit Number [id number] Ethnicity Corporate ID Room Number Accession Number [id number] Height Date of 1935 Weight Age 81 year(s) BSA Referring Physician Sakshi Temple BMI Interpreting Sakshi Temple Date of study 07/08/2016 Physician Supervising MD/MLP Sakshi Temple NM Technologist Raimundo Bain MD Ordering Physician Sakshi Temple Stress MD dialysis patient care technician Stress ECG Reading Sakshi Temple Nurse Patrick English Physician nailing machine feeder Procedure Type: Nuclear Stress Test:Pharmacological, Lexiscan, Cardiolite Stress Test Procedure Start time: 07/08/2016 09:06 Indications: Chest discomfort and Dyspnea. Risk Factors The patient risk factors include:obesity, treated hypercholesterolemia, treated hypertension and dyslipidemia. Conclusions Summary Perfusion Images: The overall quality of the study is poor, due to gastrointestinal tracer uptake. Left ventricular cavity is noted to be normal on the stress and normal on the rest images. There is no evidence of abnormal lung activity. The right ventricle is not visualized an cannot be assessed. Impression ECG portion of the lexiscan stress test is clinically negative for ischemia by diagnostic criteria. Myocardial perfusion imaging is moderately abnormal. The images reveal a partially reversible defect in the entire inferior wall distal anterior wall consistent with ischemia . Overall left ventricular systolic function was normal. Calculated LVEF is 70% and TID ratio is 1.15. This is a intermediate risk stress test. There are no previous studies for comparison . Stress Protocols Resting ECG NSR, Incomplete RBBB Resting HR:65 bpm Resting BP:157/91 mmHg Pre-stress physical exam: s1, s2 rrr Predicted HR: 141 bpm ECG Findings No ECG changes suggestive of ischemia. Arrhythmias No rhythm abnormality. Symptoms No symptoms with Lexiscan infusion. Stress Interpretation Appropriate hemodynamic response to Lexiscan. No significant ST-T wave changes with Lexiscan. ECG portion is negative for ischemia by diagnostic criteria. Imaging Results Summed scores - Summed stress score: 15 - Summed rest score: 8 - Summed difference score: 7 Stress ejection Ejection fraction:70 % EDV :79 ml ESV :24 ml Stroke volume :55 ml LV mass :118 gr Imaging Protocols Rest Stress Isotope:Tc99m Sestamibi IV Isotope: Tc99m Sestamibi IV Isotope dose:15.3 mCi Isotope dose:44.9 mCi Date:07/08/2016 07:42 Date:07/08/2016 09:29 Technique: SPECT Technique: Gated Supine SPECT Supine Scan Time:30 minutes post injection Scan Time:45-60 minutes post injection Procedure Medications - Regadenoson (Lexiscan) 0.4 mg IV over 10-15 sec. I.V. 0.4 mg. Medications administered per verbal order and read back to physician prior to administration. Medical History Admission Data Admission date: 07/08/2016 Admission Time: 07:07 Hospital Status: Outpatient. Signatures dtt: BROOKE PRINCE dtd: 07/08/16 0906 Physician Self Edit
== END | disposition disaster alternative care site (69) ==
LOC: GRAD 07:07
DX: R07.9 Chest pain, unspecified (principal); E66.9 Obesity, unspecified; E78.00 Pure hypercholesterolemia, unspecified; E78.5 Hyperlipidemia, unspecified; I10 Essential (primary) hypertension; R06.00 Dyspnea, unspecified; R94.31 Abnormal electrocardiogram [ECG] [EKG]
CPT/HCPCS: A9500; J2785

== ENCOUNTER 2016-07-14 05:54 | Outpatient (CLI) | payer MEDICARE, OTHER ==
[~2016-07-14] VITALS: Ht 149.9 cm; Wt 87.0 kg
--- NOTE | ~2016-07-14 | CATH ---
Cardiac Diagnostic Report Demographics Patient Name ARNOL Lagos Gender Female Date of 1935 Age 81 year(s) Patient Number [id number] Date of Study 07/14/2016 Visit Number [id number] Room Number [id number] [place] [id number] Ht 154.94 cm Wt 87 kg Referring Tammy Ponce Primary Physician Physician Performing [place] Secondary Physician Physician Windy WALTON [facility] Physician Windy WALTON Interventional Physician Canary Breeder Physician Findings and Conclusions Diagnostic Findings and Conclusion 1. Mild non obstructive CAD 2. LVEDP 18 mmHg Diagnostic Recommendations Medical management. Patient will be discharged later today. Continue current medications. Patient has been instructed to not lift anything more than 5 pounds for 1 week. I will plan on seeing the patient back in 4-6 week(s). I would like to thank Dr. Munoz for the opportunity to participate in the care of Mrs. Price . Procedure Description The patient was brought to the diagnostic cardiac catheterization-EP laboratory in the fasting, non-sedated state. Informed consent was obtained in the written and verbal form after the risks and benefits were explained. The patient had no further questions and agreed to proceed. The planned puncture-incision site(s) were shaved and prepped with ChloraPrep and draped in the usual sterile manner. Conscious sedation, supplemental oxygen, and pain control medications were delivered by a registered nurse under physician guidance. Surface ECG rhythm, blood pressure measurement, and pulse oximetry were monitored throughout the procedure. Arterial access. The access site was infiltrated with lidocaine. The vessel was entered with the Seldinger technique. A sheath was advanced into the vessel and used for catheter placement. Selective left coronary angiography. A catheter was advanced into the left coronary vessel ostium under Fluoroscopic guidance. Contrast was injected by hand. Images were obtained in multiple projections. Selective right coronary angiography. A catheter was advanced into the right coronary vessel ostium under fluoroscopic guidance. Contrast was injected by hand. Images were obtained in multiple projections. Left heart catheterization. A catheter was advanced across the aortic valve to the left ventricle under fluoroscopic guidance. Resting hemodynamics were obtained. Arterial artery hemostasis was achieved. The patient was transferred to a regular nursing floor via cart accompanied by a nurse. The patient left the laboratory in stable condition. Diagnostic Cath Status: Elective Procedure Procedure Type Diagnostic procedure:Angiography:, Coronary Angios w/LHC Indications: Abnormal Stress Test. The procedure was explained in detail to the patient. Risks, complications and alternative treatments were reviewed. Written consent was obtained. Medications Reviewed with Patient prior to Procedure. Angiographic Findings Dominance: Right Cardiac Arteries and Lesion Findings LMCA: Normal (0% Stenosis). LAD: Abnormal.Diag normal Lesion on Prox LAD: Mid subsection.20% stenosis . LCx: Normal (0% Stenosis). RCA: Normal (0% Stenosis). Coronary Tree Procedure Data Procedure Date Date: 07/14/2016Start: 08:20 AMEnd: 08:48 AM Entry Locations - Retrograde Percutaneous access was performed through the Right Radial artery (Primary location). A 6 Fr sheath was inserted. Unsuccessful closure attempt was performed using: an R band. Hemostasis was successfully obtained using Mechanical Compression. Closure Comments: R) band applied by Arthur. 18 ml of air in band.. Procedure Medications Order and Administration + + + +-------+ !Time !Medication !Dosage !Route ! + + + +-------+ !07/14/2016 08:15 AM !Versed !1 mg !I.V. ! + + + +-------+ !07/14/2016 08:17 AM !Fentanyl !25 mcg !I.V. ! + + + +-------+ !07/14/2016 08:21 AM !Oxygen !2 l/min !NC ! + + + +-------+ !07/14/2016 08:25 AM !Radial Verapamil !2.5 mg !I.A. ! + + + +-------+ !07/14/2016 08:27 AM !Heparin (ACC_3) !5000 units !I.V. ! + + + +-------+ Devices Used - A5 Fr. BS JR 4 Diag. Catheterwas used for:Right coronary angiography. - A5 Fr. BS JL 3.5 Diag. Catheterwas used for:Left coronary angiography. - A5 Fr. BS Angled Pigtail Diag. Catheterwas used for:LV Pressures. Contrast Material - Isovue 63304 ml Fluoroscopy Time: Diagnostic: 4:42 minutes. Total: 4:42 minutes. Fluoroscopy Dose: Diagnostic: 702 mGy. Total: 702 mGy. Estimated Blood Loss: 10 ml. Medical History Performed Procedures and Imaging Results - Stress testing with SPECT MPIwas performed. Results were: Positive. Risk/Extent of ischemia was: Intermediate risk. Allergies - No known allergies. Risk Factors The patient risk factors include:hypertension, orally-treated diabetes mellitus, last creatinine: 0.9 mg/dl, creatinine clearance: 69.61 ml/min and dyslipidemia. Admission Data Admission Date: 07/14/2016 Admission Time: 05:54 AM Admit Source: Other Insurance Payors: Medicare. Admission Medications + +------+------+ + + + + !Medication !Dosage!Times !Last !Last !Administered !Comments ! ! ! !Per !Delivery !Delivery ! ! ! ! ! !Day !Date !Time ! ! ! + +------+------+ + + + + !Aspirin ! ! ! ! !Yes ! ! !(any) ! ! ! ! ! ! ! + +------+------+ + + + + !Beta Maryse! ! ! ! !Yes ! ! !(any) ! ! ! ! ! ! ! + +------+------+ + + + + !Nitrates (iv! ! ! ! !Yes ! ! !or buccal) ! ! ! ! ! ! ! + +------+------+ + + + + !Statin (any)! ! ! ! !Yes ! ! + +------+------+ + + + + !YARELY ! ! ! ! !Yes ! ! !Inhibitor ! ! ! ! ! ! ! !(any) ! ! ! ! ! ! ! + +------+------+ + + + + Clinical Evaluation Leading to Procedure - The patient's CAD presentation was assessed as: Unstable angina. - The patient's anginal syndrome during the past two weeks was assessed as: Class III according to the [place] Cardiovascular Society Classification System (CCS). Anti-anginal medications were prescribed during the past two weeks. The medications are: Beta Blockers and Long Acting Nitrates. - The patient has been in a state of heart failure within the past two weeks. - The patient's heart failure status was assessed as NYHA Class II. [place] . Ejection Fraction - 06/12/2016 - Method: Echocardiography. EF%: 65. Hemodynamics Condition: Rest O2 Consumption: Estimated: 166.72Heart Rate: 69 bpm Pressures (mmHg) +-----+ + !Site !Pressure ! +-----+ + !AO !174/81 (119) ! +-----+ + !LV !170/10 ,18 ! +-----+ + !LV !167/11 ,18 ! +-----+ + !AO !171/68 (112) ! +-----+ + !LV !169/10 ,20 ! +-----+ + Valve Gradients and Areas + +---------+---------+---------+ +---------+ + !Valve !Peak !Mean !Area !Index !Flow !Source ! + +---------+---------+---------+ +---------+ + !Aortic !0 !0 ! ! ! ! ! + +---------+---------+---------+ +---------+ + !Aortic !0 !0 ! ! ! ! ! + +---------+---------+---------+ +---------+ + Shunts Oxygen Values O2 Capacity 167.28 O2 Consumption 166.72 Signatures dtt: WINDY PRINCE dtd: 07/14/16 08 Physician Self Edit
[2016-07-14 06:30] LABS: BASOPHIL % 0.4 %; EOSINOPHIL # 0.4 K/uL (0.0-0.5); EOSINOPHIL % 7.2 %; HEMATOCRIT 39.4 % (33.0-46.0); HEMOGLOBIN 12.3 g/dL (10.0-15.0); IMMATURE GRANULOCYTE % 0.5 %; LYMPHOCYTE # 1.6 K/uL (0.8-4.0); LYMPHOCYTE % 27.7 %; MCH 29.3 pg (27.0-34.0); MCHC 31.2 gm/dL (32.0-36.5); MCV 93.8 fl (83.0-98.0); MONOCYTE # 0.5 K/uL (0.0-1.0); MONOCYTE % 8.5 %; NEUTROPHIL # (ANC) 3.2 K/uL (1.8-7.8); NEUTROPHIL % 55.7 %; NRBC % 0 /100WBC (0-0.00); RDW-CV 14.8 % (11.9-14.6); WBC 5.7 K/uL (4.0-11.0)
[2016-07-14 06:34] LABS: PLATELET COUNT 198 K/uL (150-450)
[2016-07-14 06:40] LABS: INR - (THERAPEUTIC) 0.99 (0.92-1.07); PROTIME 10.4 SECONDS (9.8-11.4); PTT 29 SECONDS (25-32)
[2016-07-14 06:46] LABS: ALBUMIN 3.4 gm/dL (3.5-5.0); ANION GAP 10.7 (10.0-19.0); CALCIUM 8.4 mg/dL (8.5-10.5); CREATININE 0.9 mg/dL (0.5-1.1); POTASSIUM 3.7 mMol/L (3.7-5.1); TOTAL BILIRUBIN 0.4 mg/dL (0.0-1.5); TOTAL PROTEIN 6.6 g/dL (6.0-8.4)
== END 2016-07-14 12:10 | disposition disaster alternative care site (69) ==
LOC: GPOC 05:54 → GPCU 05:54 → GPOC 06:00
PROVIDERS: Internal Medicine Interventional Cardiology
PROC: B216YZZ Fluoroscopy of Right and Left Heart using Other Contrast (ICD-10-PCS; principal; 2016-07-14)
DX: R07.9 Chest pain, unspecified (principal); I25.10 Atherosclerotic heart disease of native coronary artery without angina pectoris; R06.09 Other forms of dyspnea
CPT/HCPCS: C1769; J0360; J1644; J2001; J2250; J3010; J7030

== ENCOUNTER → 2016-08-26 | Outpatient (CLI) | payer MEDICARE, OTHER ==
[2016-08-26 16:00] LABS: ANION GAP 10.8 (10.0-19.0); CALCIUM 8.8 mg/dL (8.5-10.5); POTASSIUM 3.8 mMol/L (3.7-5.1)
== END | disposition disaster alternative care site (69) ==
LOC: LNHI 15:45
PROVIDERS: Internal Medicine Interventional Cardiology
DX: I10 Essential (primary) hypertension (principal); E78.5 Hyperlipidemia, unspecified; R07.9 Chest pain, unspecified